=== PATIENT | male | born 1990 | race Caucasian/White ===

== ENCOUNTER 2017-03-07 11:12 | Day surgery (SDC) | payer OTHER ==
[~2017-03-07] VITALS: Ht 170.2 cm; Wt 80.2 kg
[2017-03-07] VITALS (11 sets, daily range): BP systolic 97–143; BP diastolic 38–89; PULSE 68–106; RESP 12–18; O2SAT 96–99
[~2017-03-07 11:12] MED LIST: CeFAZolin Inj 2 GM in IV Premix 1 EACH IV ONE; Lactated Ringer's 1,000 ML IV ONE
[2017-03-07] MEDS ORDERED: Glycopyrrolate 0.2 MG/ML 1mL Inj ONE (11:13)
[2017-03-07] MEDS ORDERED: Ondansetron 2 mg/mL 2 mL Inj ONE (11:13)
[2017-03-07] MEDS ORDERED: fentaNYL-PF 50 mCg/mL 2 mL Inj ONE (11:13)
[2017-03-07] MEDS ORDERED: Dexamethasone 4 mg/mL Inj ONE (11:13)
[2017-03-07] MEDS ORDERED: Propofol 10,000 mCg/mL 20 mL Inj ONE (11:13)
[2017-03-07] MEDS ORDERED: Lactated Ringer's 500 ML IV PRN (11:56)
[2017-03-07] MEDS ORDERED: Lactated Ringer's 1,000 ML IV SCH (11:56)
--- NOTE | 2017-03-07 11:56 | PCM.HPANE ---
Patient Data Surgeon Admitting Provider: Attending Provider:Real Love DPM Primary Care Physician:Ton Camacho MD Other Provider:Dina Odeningham Anesthesia Reason for Visit Right Ankle Fx, Instability, Retained Hardware Ht/WT & BMI Height (Feet): 5 Height (Inches): 7 Weight (Kilograms): 80.2 Body Mass Index 27.00 Allergies Coded Allergies: No Known Allergies (Unverified , 03/06/17) Past Anesthesia History Anesthesia History: Denies:: Abnormal Airway, Anesthesia Reactions, Difficult Intubation, Fam Anesthesia Reaction, Fam Malignant Hypertherm, Malignant Hyperthermia Diabetes History Hx Diabetes?: No MRSA MRSA: No Medications Hypertension Medication: No Home Meds Incl Beta Maria C: No No Active Prescriptions or Reported Meds History History of ENT Problems?: No HEENT History: Denies:: Abnormal Airway Cataracts Difficult Intubation Dysphagia Glaucoma Hearing Problem Sinus Problem TMJ Denture Type: None Teeth Condition: Within Normal Limits Hx of Heart Problems?: No Cardiovascular History: Denies:: AICD Abdominal Aortic Aneurism Atrial Fibrillation Cardiac Surgery Chest Pain Congestive Heart Failure Coronary Artery Disease Edema Heart Murmur Hypertension Irregular Heartbeat Pacemaker Peripheral Vascular Rheumatic Fever Thrombophlebitis Valvular Heart Disease Hx of Respiratory Problem?: Yes Respiratory History: Denies:: Use of C-PAP Machine (SNORES) Hx Neurologic Problems?: No Hx of GI Problems?: No Hx of Problems?: No Male Hx: Denies:: Prostate Problems Scrotal Mass Testicular Surgery Skin History: Denies:: History Skin Disorders? Pressure Ulcers Hx Musculoskeletal Problems?: Yes Musculoskeletal History: Positive for:: Musculoskeletal Trauma (RT ANKLE FX/ INSTABILITY/NON-UNION=CURRENT PROBLEM) Hx of Psycho/Social Problems?: No Hx Surgeries?: Yes (RT ANKLE RECONSTRUCTION) Hx Any Other Health Problems?: Yes Other History: Denies:: Cancer Endocrine Disease Hospitalization Thyroid Disease History Blood Transfusions: Denies:: Blood Transfusions Hx Diabetes: No Hx Alcohol Use: Yes (<1 /day average)Hx Substance Use: No Smoking Status: Current Every Day Smoker Have You Smoked inLast 12 mo: Yes Stop/Bang S-Snoring: Do You Snore Loudly: Yes T-Tired: feel tired, fatigued: Yes O-Obsered: Observed not breath: No P-Blood Pressure: treated: No B- Body Mass Index > 35 kg/m2: No A- Age over 50: No N- Neck Large Circumference: No G- Gender Male: Yes AVIS Total Score: 3 AVIS Risk Assessment: High Risk, =/>3 Yes Risk Assessment Category Category 1A: Patient has history of documented sleep apnea, and HAS NOT received any narcotic, sedative or anesthesia administration during this stay. Category 1B: Patient has history of documented sleep apnea, and HAS received any narcotic , sedative or anesthesia administration during this stay Category 2: Patient has SUSPECTED Obstructive Sleep Apnea, and HAS received any narcotic , sedative or anesthesia administration during this stay. Category 3: Patient has SUSPECTED Obstructive Sleep Apnea and HAS NOT received narcotic, sedative or anesthesia administration during this stay. Category 4: Outpatient in Procedural Areas with known sleep apnea or who screen positive for High Risk via the STOP/BANG questionnaire. Exam Exam Vital Signs Vital Signs Date Time Temp Pulse Resp B/P Pulse Ox O2 Delivery O2 Flow Rate FiO2 03/07/17 11:37 36.7 85 17 125/85 98 Room Air General Appearance: Alert, Oriented X3, Cooperative, No Acute Distress HEENT/AIRWAY: MP 1 Lungs: Clear to Auscultation, Normal Air Movement Heart: Exam Unremarkable, Regular Rate/Rhythm, No Murmurs/Rubs/Gallops Meds/Labs/Diagnostics Admission Meds Current Medications Lactated Ringer's (Lr) 1,000 ml @ 120 mls/hr [id number] ONCE IV Last administered on 03/07/17t 11:30; Start 03/07/17 at 00:50; Stop 03/07/17 at 09:09; Status DC Plan Impression Patient chart reviewed, patient interviewed and anesthestic plan with risks, benefits, and alternatives discussed, and informed consent obtained. ASA Physical Status: ASA2 Mod Systemic Disease Anesthetic Plan: GA Bene/Risks/Altern/Consents: Yes HP Complete Prior to Induction: Yes Yosef Verma MD Mar 07, 2017 11:39
[2017-03-07] MEDS ORDERED: fentaNYL-PF 50 mCg/mL 2 mL Inj IVPUSH PRN (12:00)
[2017-03-07] MEDS ORDERED: EPHEDrine Sulfate 50 mg/mL Inj IVPUSH PRN (12:00)
[2017-03-07] MEDS ORDERED: Ondansetron 2 mg/mL 2 mL Inj IVPUSH PRN (12:00)
[2017-03-07] MEDS ORDERED: MetoCLOpramide 5 mg/mL 2 mL Inj IVPUSH PRN (12:00)
[2017-03-07] MEDS ORDERED: HYDROmorphone 1 mg/mL Inj IVPUSH PRN (12:00)
[2017-03-07] MEDS ORDERED: Atropine 0.4 mg/mL Inj IVPUSH PRN (12:00)
[2017-03-07] MEDS ORDERED: Labetalol 5 mg/mL 4 mL Inj IV PRN (12:00)
[2017-03-07] MEDS ORDERED: Phenylephrine 10,000 mCg/mL Inj IVPUSH PRN (12:00)
[2017-03-07] MEDS ORDERED: Bupivacaine 0.5%/EPI 50 mL Inj INFILTRATE ONE (12:59)
[2017-03-07] MEDS ORDERED: oxyCODONE-Acetamin 5-325 mg Tablet PO PRN (14:00)
--- NOTE | 2017-03-07 14:06 | PCM.PODPO ---
Podiatry Operative Report Date of Service: Mar 07, 2017 Date of Service Mar 07, 2017 Pre Operative Diagnosis Nonunion medial malleolus fracture Syndesmotic disruption right lower extremity Painful retained hardware right lower extremity Post Operative Diagnosis Same as preoperative diagnoses Procedure Excision of hardware right lower extremity Excision of fracture fragment right ankle Surgeon Surgeon: Real Love DPM Assistants: None Indication for Procedure Painful retained hardware and painful nonunion right anterior medial malleolus Findings Nonunion of anterior medial malleolar fracture. Loosened tight rope fixation of the right ankle syndesmosis. No noted instability following stress inversion views of the right ankle Details of Procedure Patient was identified in the preoperative holding area. Operative comorbidities and allergies were identified and thoroughly discussed. The patient was transported into the operating room and placed on the operating room table in the normal supine position. The patient was preoperatively blocked locally with 10 mL have percent Marcaine with epinephrine. The patient was then prepped and draped in the normal aseptic technique. Attention was first paid to the medial malleolus. The palpable internal fixation was directly palpated and a stab incision was made overlying the medial suture button. Once that initially her skin a hemostat was then utilized to bluntly dissected down to and exposed the medial button of the tight rope. The type rope suture was cut utilizing a 15 blade and the medial suture button was removed from the medial malleolus and hole. This wound was then copiously flushed large amounts of normal saline and 4. 0 Prolene suture was used to close the stab incision. Attention was then paid to lateral malleolus and distal fibula. Mini C-arm x-ray was used to help identify the location of the lateral suture button. A stab incision approximately 1/2 cm in length was made directly overlying the lateral suture button. A Metzenbaum scissor was used to bluntly dissected down to and identified the suture button and a needle special education bus driver was then used to remove the internal fixation and attached suture. This wound was then closely flushed and closed utilizing number 4. 0 Prolene Attention was again paid to the medial malleolus and incision approximately 3 cm in length was made directly overlying the previous distal incision. Once the initial layer of skin all subcutaneous neurovascular structures were identified and retracted out of the surgical field. Blunt dissection was carried with the Metzenbaum scissor through subcutaneous tissue to identify deep fascia and the superficial deltoid ligaments. The anterior attachment of the superficial deltoid was sharply dissected away from its insertion into the medial malleolus exposing the underlying internal fixation. The 4.0 mm cannulated screw was then removed without complication. Intraoperative C-arm x-ray was utilized to identify the nonunion site of the distal medial malleolus and a rongeur was used to resect all nonunited fracture fragments. The posterior portion of the medial malleolus was assessed and found to be well adhered to the remainder of the tibia so the decision was made not to excise any of the posterior portion of the distal aspect of the medial malleolus. A rongeur was utilized to smooth out the resected anterior portion this wound was then copiously flushed with large amounts of normal saline A3.5 millimeter Arthrex suture anchor was then inserted and the associated FiberWire suture was then utilized to perform direct repair of the anterior superficial portion of the deltoid ligament attachments to the medial malleolus. Layered closure was then performed utilizing number 3. 0 Vicryl and skin closure was performed utilizing number 4. 0 Prolene. No complications occurred during this case. Postoperative block consisting of 10 mL have percent Marcaine plain was given to the right ankle. The patient was then placed into a dressing consisting of Adaptic sterile 4 x 4 gauze Kerlix and a minimally compressive Rivera compression dressing. Grafts, Implants: Implants-See Implant Record Complications There were no periprocedural complications identified. Condition Stable Anesthetic Administered: GA Catheters: None Output, Estimated Blood Loss: 20 Blood Admin during surgery: No Surgical Cast or Splint: Well-padded Short Leg Splint Surgical Specimen Removed: No Specimen sent to Pathology: No Post Operative Plan Ice and elevate right ankle Nonweightbearing right ankle Keep dressing clean dry and intact Contact office with any questions or concerns regarding care Discharged to home when stable Pain medication as needed for severe pain only Real Love DPM Mar 07, 2017 14:06
--- NOTE | 2017-03-07 14:11 | PCM.ANEP1 ---
Post Anesthesia Phase 1 PACU Phase 1 Assessment Date of Service: Mar 07, 2017 Vital Signs Vital Signs Date Time Temp Pulse Resp B/P Pulse Ox O2 Delivery O2 Flow Rate FiO2 03/07/17 14:04 36.6 83 13 102/38 97 Simple Mask 8 03/07/17 11:37 36.7 85 17 125/85 98 Room Air Anesthetic Administered: GA Level of Alertness: Sleepy, easy to arouse CABALLERO's with Equal Strength: Yes Pain: No Nausea or Vomiting: No Cardiovascular Function and Hy: Yes Airway Device: Nasal Airway Lungs: Clear to Auscultation, Normal Air Movement Complications: No Follow up Care: No Patient Instructions Provided: Yes (per RN protocol) Yosef Verma MD Mar 07, 2017 14:11
== END 2017-03-07 23:59 | disposition home or self-care (01) ==
LOC: SAS 11:12
PROVIDERS: ATTEND Podiatrist Foot & Ankle Surgery
DX: S82.54XK Nondisplaced fracture of medial malleolus of right tibia, subsequent encounter for closed fracture with nonunion (principal); S93.431D Sprain of tibiofibular ligament of right ankle, subsequent encounter; T84.84XA Pain due to internal orthopedic prosthetic devices, implants and grafts, initial encounter; M25.371 Other instability, right ankle; W17.89XD Other fall from one level to another, subsequent encounter; Y92.9 Unspecified place or not applicable; F17.210 Nicotine dependence, cigarettes, uncomplicated
CPT/HCPCS: 20680; 27610; 27695; C1713; J0690; J1100; J1885; J2250; J2405; J3010; J7120